=== PATIENT | male | born 1945 | race Caucasian/White ===

== ENCOUNTER 2016-08-16 16:27 | Emergency (ER) | payer MEDICARE ==
--- NOTE | 2016-08-16 17:35 | RAD ---
INDICATION: Right lower extremity swelling. COMPARISON: Comparison is made with a prior lower extremity venous duplex study from March 06, 2009. TECHNIQUE: Multiple real-time, color flow and Doppler tracings of the right lower extremity were obtained. FINDINGS: The common femoral, femoral, profunda femoral and popliteal veins all demonstrate normal compressibility, augmentation with compression and phasic response with respiration. The posterior tibial and peroneal veins demonstrate normal compressibility and augmentation with compression. IMPRESSION: NO EVIDENCE FOR DEEP VENOUS THROMBOSIS.
[2016-08-16] MEDS ORDERED: Vancomycin(*) 1,000 MG in NS 0.9% 250 ML* 250 ML IVPB ONE ×2 (18:11→20:00)
[2016-08-16] MEDS ORDERED: metroNIDAZOLE IV 500 MG/100ML* 500 MG/100 ML BAG IVPB ONE (18:11)
[2016-08-16] MEDS ORDERED: Cefepime(*) 2 GM in NS 0.9% 50 ML* 50 ML IVPB ONE (18:16)
[2016-08-16] MEDS: NS 0.9% 1000 ML* 2,000 ML IV ONE (18:49)
[2016-08-16 18:54] LABS: Hematocrit 46 % (42-52); Hemoglobin 15.3 g/dl (14.0-18.0); Mean Corpuscular HGB Conc 33 g/dl (31-36); Mean Corpuscular Hemoglobin 30 pg (27-31); Mean Corpuscular Volume 90 fL (80-94); Mean Platelet Volume 8 um3 (7.4-10.4); Red Blood Count 5.14 10^6/ul (4.0-5.4); Red Cell Distribution Width 14 % (10.5-15); White Blood Count 14.6 10^3/ul (3.5-10.8)
--- NOTE | 2016-08-16 18:59 | ED ---
Emery Barrett Rebecca, scribed for Marcelo Rock MD on 08/16/16 at 1757 . Lower Extremity - HPI Summary HPI Summary: Pt is a 71 y/o M who presents to ED c/o RLE swelling and erythema. Reports running his R great toe over with a wheelchair 3 days ago, taking off the majority of the toe nail. The next day he soaked it in salt water. Starting gradually yesterday and significantly worsening today, the RLE is swollen and erythematous form the knee downwards. Denies any pain currently. Sx aggravated and alleviated by nothing. Additionally c/o mild, intermittent pain in the R knee joint and one bout of chills yesterday evening. Denies CP, SOB, fever, cough, N/V, abd pain, back pain. Denies any red streaks. Is not on blood thinners. Does not believe he has poor circulation. PMHx CHF. No PMHx DM. SHx former smoker. PCP is Dr. Rick, order checker packer processer is Dr. Lozada. - History of Current Complaint Chief Complaint: EDExtremityLower Stated Complaint: SWELLING IN RIGHT LEG , Time Seen by Provider: 08/16/16 17:50 Hx Obtained From: Patient Onset/Duration: Still Present Severity Currently: None Pain Intensity: 0 Pain Scale Used: 0-10 Numeric Location: Is Discrete @ - RLE form the knee down Associated Signs And Symptoms: Positive: Swelling, Redness, Knee Pain - mild, intermittent, in the joint. Negative: Abdominal Pain Aggravating Factor(s): Nothing Alleviating Factor(s): Nothing - Allergies/Home Medications Allergies/Adverse Reactions: Allergies Allergy/AdvReac Type Severity Reaction Status Date / Time Clopidogrel [From Plavix] Allergy Rash Verified 08/16/16 16:56 Metoprolol Allergy Altered Verified 08/16/16 16:56 Mental Status PMH/Surg Hx/FS Hx/Imm Hx Endocrine/Hematology History: Denies: Hx Diabetes Cardiovascular History: Reports: Hx Congestive Heart Failure Infectious Disease History: No Infectious Disease History: Denies: Traveled Outside the [place] in Last 30 Days - Family History Known Family History: Negative: Cardiac Disease - Social History Alcohol Use: Rare Substance Use Type: Reports: None Smoking Status (MU): Former Smoker Review of Systems Positive: Chills. Negative: Fever Negative: Chest Pain Negative: Shortness Of Breath, Cough Negative: Abdominal Pain, Vomiting, Nausea Positive: Arthralgia - Mild, intermittent R knee pain; Denies any back pain, Edema - RLE edema from the knee and down without pain All Other Systems Reviewed And Are Negative: Yes Physical Exam - Summary Physical Exam Summary: The patient is well-nourished in no acute distress and in no acute pain. The skin is warm and dry and skin color reflects adequate perfusion. HEENT: The head is normocephalic and atraumatic. The pupils are equal and reactive. The conjunctivae are clear and without drainage. Nares are patent and without drainage. Mouth reveals moist mucous membranes and the throat is without erythema and exudate. The external ears are intact. The ear canals are patent and without drainage. The tympanic membranes are intact. Neck is supple with full range of motion and non-tender. There are no carotid bruits. There is no neck vein distension. Respiratory: Chest is non-tender. Lungs are clear to auscultation and breath sounds are symmetrical and equal. Cardiovascular: Hear is regular rate and rhythm. There is no murmur or rub auscultated. There is no peripheral edema and pulses are symmetrical and equal. Abdomen: The abdomen is obese, soft and non-tender. There is no organomegaly palpated. No CVA tenderness. Musculoskeletal: There is no back pain noted. Extremities are non-tender with full range of motion. There is good capillary refill. Exam of the lower extremities reveals bilateral DP and PT pulses, marked edema of his RLE over the dorsum of the foot up to the knee, with erythema as well. It is warm to touch and edema does not appear to extend beyond the knee. His great toe has an avulsed nail with some redness around the nail bed. Completely nontender. Neurological: Patient is alert and oriented to person, place and time. The patient has symmetrical motor strength in all four extremities. Cranial nerves are grossly intact. Deep tendon reflexes are symmetrical and equal in all four extremities. Psychiatric: The patient has an appropriate affect and does not exhibit any anxiety or depression. Triage Information Reviewed: Yes Vital Signs On Initial Exam: Initial Vitals Temp Pulse Resp BP Pulse Ox 97.9 F 89 20 129/72 97 08/16/16 16:31 08/16/16 16:31 08/16/16 16:31 08/16/16 16:31 08/16/16 16:31 Vital Signs Reviewed: Yes - Proctor Coma Scale Coma Scale Total: 15 Diagnostics - Vital Signs Vital Signs Temp Pulse Resp BP Pulse Ox 08/16/16 16:31 97.9 F 89 20 129/72 97 - Laboratory Lab Statement: Any lab studies that have been ordered have been reviewed, and results considered in the medical decision making process. - Ultrasound No standard instances Ultrasound Interpretation Completed By: Radiologist - Venous Doppler Study: No evidence for deep venous thrombosis. Lower Extremity Course/Dx - Course Assessment/Plan: Patient is a 71 y/o M with a CC of the RLE swelling and erythema from the knee downwards since yesterday, without any pain. Additionally c/o mild, intermittent pain in the R knee joint and one bout of chills yesterday evening. Denies CP, SOB, fever, cough, N/V, abd pain, back pain. Denies any red streaks. Is not on blood thinners. While in the ED, pt received IV fluids and Abx. Venous doppler study reveals no evidence for DVT. Pt will be signed out. - Diagnoses Differential Diagnosis/HQI/PQRI: Positive: Cellulitis, DVT, Infection Provider Diagnoses: Cellulitis of right lower extremity Discharge - Discharge Plan Condition: Stable Disposition: OTHER Discharge Disposition Comment: Pt will be signed out, pending dispo, awaiting lab results Patient Education Materials: Cellulitis (ED) Referrals: Victor Manuel Mena MD [Primary Care Provider] - The documentation as recorded by the Emery smith Rebecca accurately reflects the service I personally performed and the decisions made by , Marcelo Rock MD.
[2016-08-16 19:05] LABS: Albumin 4.3 g/dL (3.2-5.2); BUN/Creatinine Ratio 20.5 (8-20); Calcium 9.5 mg/dL (8.6-10.3); EGFR African American 79.3 (>60); EGFR Non-African American 61.6 (>60); Potassium 3.5 mmol/L (3.5-5.0); Total Bilirubin 1.2 mg/dL (0.2-1.0); Total Protein 7.3 g/dL (6.4-8.9)
[2016-08-16 22:06] VITALS: BP 102/45
[2016-08-16] MEDS ORDERED: Acetaminophen TAB* 325 MG PO ONE (22:24)
[2016-08-16] MEDS ORDERED: Acetaminophen TAB* 325 MG ONE (22:25)
== END 2016-08-16 22:21 | disposition home or self-care (01) ==
LOC: ED 16:27
DX: L03.115 Cellulitis of right lower limb (principal); R60.9 Edema, unspecified; M25.561 Pain in right knee
CPT/HCPCS: 36415; 80053; 83605; 85025; 85610; 87040; 99283; A9270-GY; J0692; J3370